=== PATIENT | male | born 1950 | race Caucasian/White ===

== ENCOUNTER → 2021-02-04 | Day surgery (SDC) | payer MEDICARE | LOC: CSHNM 08:41 | PROVIDERS: ATTEND Internal Medicine Hematology & Oncology | DX: Z08 Encounter for follow-up examination after completed treatment for malignant neoplasm (principal); Z85.038 Personal history of other malignant neoplasm of large intestine; Z85.528 Personal history of other malignant neoplasm of kidney | CPT/HCPCS: 71260; 74177; 78306; 82565 ==

== ENCOUNTER 2021-02-12 11:52 | Outpatient (CLI) | payer MEDICARE | END 2021-02-12 11:53 | disposition home or self-care (01) | LOC: CSHCT 11:52 | PROVIDERS: ATTEND Surgery | DX: M89.9 Disorder of bone, unspecified (principal) | CPT/HCPCS: 70470 ==